=== PATIENT | female | born 1945 | race Caucasian/White ===

== ENCOUNTER 2017-04-21 00:37 | Emergency (ER) | payer MEDICARE, OTHER ==
[~2017-04-21] VITALS: Ht 165.1 cm; Wt 77.1 kg
[~2017-04-21 00:37] MED LIST: ASPI-482 PO; ATOR20TA58 PO; BUDE10.2 IH; CETI10TA22 PO; GLIM2TAB2 PO; IRON18TA PO; LOSA1TAB18 PO; METF500T4 PO; MONT10TA9 PO; PROP40TA PO
--- NOTE | 2017-04-21 02:01 | PHYS DOC ---
Past Medical History Past Medical History: Asthma, CAD, Diabetes-Type II, High Cholesterol, Hypertension, Other Additional Past Medical Histor: SUPERFICIAL BLOOD CLOT, LUNG CANCER Past Surgical History: , Hip Replacement, Other Additional Past Surgical Histo: LOBECTOMY Alcohol Use: None Drug Use: None Adult General Chief Complaint Chief Complaint: SWALLOWED FORIEGN BODY HPI HPI Patient is a 72 year old female who presents with complaint of possible foreign body in the throat. Patient states that she took a Levaquin tablet yesterday at noon. Patient states that the tablet was Stefani so she cut the tablets into 3 pieces. Patient states that one of the pieces felt like it got stuck in her throat. Patient states that she was able to tolerate oral liquids and stated that earlier this evening she was able to drink broth. Patient states that this seemed to help and she thought the symptoms have resolved. Patient states however tonight she started having recurrence of symptoms in her throat. Patient states that she tried to eat applesauce and stated that she had difficulty with swallowing. Patient denies any pain currently. Patient states that it feels like she's got something stuck in her throat at this time. Patient states that she had a similar episode in the past but states that this resolved spontaneously. Review of Systems Review of Systems Constitutional: Denies fever or chills [] Eyes: Denies change in visual acuity, redness, or eye pain [] HENT: Dysphagia, denies nasal congestion [] Respiratory: Denies cough or shortness of breath [] Cardiovascular: No additional information not addressed in HPI [] GI: Denies abdominal pain, nausea, vomiting, bloody stools or diarrhea [] : Denies dysuria or hematuria [] Musculoskeletal: Denies back pain or joint pain [] Integument: Denies rash or skin lesions [] Neurologic: Denies headache, focal weakness or sensory changes [] Current Medications Current Medications Current Medications Medications (Trade) Dose Ordered Sig/Debbie Start Time Stop Time Status Last Admin Dose Admin Glucagon (Glucagen) 1 mg 1X ONCE 04/21/17 02:15 04/21/17 02:16 DC 04/21/17 02:14 1 MG Midazolam HCl (Versed) 1 mg 1X ONCE 04/21/17 02:15 04/21/17 02:16 DC 04/21/17 02:13 1 MG Allergies Allergies Allergies Coded Allergies Type Severity Reaction Last Updated Verified Sulfa (Sulfonamide Antibiotics) Allergy Intermediate rash 07/04/14 Yes latex Allergy Intermediate 07/04/14 Yes Physical Exam Physical Exam Constitutional: Well developed, well nourished, no acute distress, non-toxic appearance. [] HENT: Normocephalic, atraumatic, bilateral external ears normal, oropharynx moist, tolerating oral secretions, no oral exudates, nose normal. [] Eyes: PERRLA, EOMI, conjunctiva normal, no discharge. [] Neck: Normal range of motion, no tenderness, supple, no stridor. [] Cardiovascular:Heart rate regular rhythm, no murmur [] Lungs & Thorax: Bilateral breath sounds clear to auscultation [] Abdomen: Bowel sounds normal, soft, no tenderness, no masses, no pulsatile masses. [] Skin: Warm, dry, no erythema, no rash. [] Back: No tenderness, no CVA tenderness. [] Extremities: No tenderness, no cyanosis, no clubbing, ROM intact, no edema. [] Neurologic: Alert and oriented X 3, normal motor function, normal sensory function, no focal deficits noted. [] Current Patient Data Vital Signs Vital Signs Date Time Temp Pulse Resp B/P (MAP) Pulse Ox O2 Delivery O2 Flow Rate FiO2 04/21/17 01:10 97.6 97 18 141/79 (99) 97 Room Air 97.6 Lab Values Laboratory Tests Test 04/21/17 02:03 Glucose (Fingerstick) 92 mg/dL (70-99) EKG EKG Not performed [] Radiology/Procedures Radiology/Procedures Not performed [] Course & Med Decision Making Course & Med Decision Making Pertinent Labs and Imaging studies reviewed. (See chart for details) Patient was treated with IV glucagon and Versed in the emergency department. Patient given oral fluids which she was able to tolerate without difficulty. Advised to continue with oral fluids at this time. The patient's symptoms may be due to mucosal abrasion from the pills that she took earlier in the day. The patient will be referred to Dr. Pichardo for follow-up in 3-4 days of symptoms are not improving. Advised return emergency department for any worsening symptoms. Patient voiced understanding and in agreement with treatment plan. Dragon Disclaimer Dragon Disclaimer This electronic medical record was generated, in whole or in part, using a voice recognition dictation system. Departure Departure Impression: Primary Impression: Dysphagia Disposition: 01 HOME, SELF-CARE Condition: IMPROVED Referrals: CLIFF LANZA Jr, MD (PCP) MARNI PICHARDO MD Patient Instructions: Dysphagia Additional Instructions: Follow-up with Dr. Pichardo in 3-4 days of symptoms are not improving. Return to the emergency department for any worsening symptoms. Problem Qualifiers Primary Impression: Dysphagia Dysphagia type: unspecified Qualified Codes: R13.10 - Dysphagia, unspecified KIKE SPIVEY MD April 21, 2017 02:01
[2017-04-21] MEDS ORDERED: GLUCAGON,HUMAN RECOMBINANT 1 MG/ML VIAL. IV ONE (02:15)
[2017-04-21] MEDS ORDERED: MIDAZOLAM HCL/PF 2 MG/2 ML VIAL. IV ONE (02:15)
[2017-04-21 02:45] VITALS: BP 132/64
== END 2017-04-21 03:20 | disposition home or self-care (01) ==
LOC: ER 00:37
DX: R13.10 Dysphagia, unspecified (principal); I10 Essential (primary) hypertension; E11.9 Type 2 diabetes mellitus without complications; J45.909 Unspecified asthma, uncomplicated; E78.00 Pure hypercholesterolemia, unspecified; I25.10 Atherosclerotic heart disease of native coronary artery without angina pectoris; Z88.2 Allergy status to sulfonamides; Z91.040 Latex allergy status
CPT/HCPCS: 82962; 96374; 96375; 99284; J1610; J2250